=== PATIENT | male | born 1955 | race Caucasian/White ===

== ENCOUNTER → 2021-05-02 | Outpatient (CLI) | payer OTHER | LOC: CAT 10:27 | PROVIDERS: ATTEND Internal Medicine | DX: Z13.6 Encounter for screening for cardiovascular disorders (principal); I25.10 Atherosclerotic heart disease of native coronary artery without angina pectoris; E78.00 Pure hypercholesterolemia, unspecified ==

== ENCOUNTER → 2021-05-17 | Outpatient (CLI) | payer OTHER | LOC: SJCVCIMAG 08:00 | PROVIDERS: ATTEND Internal Medicine | DX: I08.0 Rheumatic disorders of both mitral and aortic valves (principal); I11.9 Hypertensive heart disease without heart failure ==

== ENCOUNTER 2021-11-11 13:56 | Inpatient (IN) | payer OTHER ==
[~2021-11-11] VITALS: Ht 170.2 cm; Wt 90.8 kg
[2021-11-11 14:00] VITALS: BP 136/73
[2021-11-11 14:24] LABS: ABSOLUTE NEUTROPHILS 8.3 thou/uL (1.4-8.2); BASOPHILS 0.1 % (0.0-2.0); HEMATOCRIT 39.5 % (42.0-52.0); HEMOGLOBIN 13.7 gm/dL (14.0-18.0); LYMPHOCYTES 7.2 % (24.0-44.0); MCH 31.1 pg (26.0-34.0); MCHC 34.8 g/dL (28.0-37.0); MCV 89.3 fL (80.0-100.0); MONOCYTES 2.5 % (1.0-8.0); PLATELET COUNT 212 thou/uL (150-400); POLYS 90.2 % (36.0-66.0); RBC 4.43 mil/uL (4.50-6.00); WBC 9.2 thou/uL (4.0-11.0)
[2021-11-11 14:39] LABS: CALCIUM 8.9 mg/dL (8.5-10.1); POTASSIUM 4.5 mmol/L (3.5-5.1)
[2021-11-11 14:50] LABS: ALBUMIN 2.9 g/dL (3.4-5.0); TOTAL BILIRUBIN 0.6 mg/dL (0.2-1.0); TOTAL PROTEIN 7.1 g/dL (6.4-8.2)
--- NOTE | 2021-11-11 17:12 | NUR ---
-DOMINGA [id number]
[2021-11-11 17:39] VITALS: BP 133/80
[2021-11-11] MEDS ORDERED: TOPROL XL50 MG PO (17:48)
[2021-11-11] MEDS ORDERED: RAMIPRIL10 MG PO (17:49)
[2021-11-11] MEDS ORDERED: TOPROL XL25 MG PO (17:49)
[2021-11-11] MEDS ORDERED: LORATIDINE 10 M10 M1 PO (17:49)
[2021-11-11 17:55] VITALS: BP 127/82
[2021-11-11 18:07] VITALS: BP 149/91
[2021-11-11 19:39] VITALS: BP 140/79
[2021-11-11 23:54] VITALS: BP 141/86
[2021-11-12] VITALS (21 sets, daily range): BP systolic 108–142; BP diastolic 63–84
--- NOTE | 2021-11-12 00:40 | NUR ---
pt o2 sats on 11 liters while sleeping 87% rt in to give treatment and optiflow applied at 45l/82% fio2
--- NOTE | 2021-11-12 03:45 | NUR ---
PROGRESS PT A/O X4. LUNGS COARSE AND DIMINISHED. O2 SATS IN LOW 90'S AT START OF SHIFT BUT RT IN TO APPLY OPTIFLOW AND PT SATS UP TO MID 90'S. PT ANXIOUS AND A ONE TIME DOSE OF ATARAX GIVEN WITH EFFECT PT RESTING AFTER. VOIDING QS PER URINAL. TELEMETRY INTACT READING SR WITH RATES IN THE 70'S TO 80'S. CONTINUE TO MONITOR.
[2021-11-12 05:12] LABS: CALCIUM 8.3 mg/dL (8.5-10.1); CREATININE 0.9 mg/dL (0.7-1.3); MAGNESIUM 2.2 mg/dL (1.8-2.4); POTASSIUM 4.5 mmol/L (3.5-5.1)
[2021-11-12 05:14] LABS: ABSOLUTE NEUTROPHILS 4.1 thou/uL (1.4-8.2); HEMATOCRIT 35.2 % (42.0-52.0); HEMOGLOBIN 12.1 gm/dL (14.0-18.0); MCH 30.6 pg (26.0-34.0); MCHC 34.3 g/dL (28.0-37.0); MONOCYTES 5.2 % (1.0-8.0); PLATELET COUNT 227 thou/uL (150-400); POLYS 80.8 % (36.0-66.0); RBC 3.96 mil/uL (4.50-6.00); WBC 5.1 thou/uL (4.0-11.0)
--- NOTE | 2021-11-12 07:18 | EKG ---
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: BRENDAN : 1955 Requested By: Hever Arnold Order Number: [id number] MD: Ferny Nino Measurements Intervals [place] Rate: 74 P: 43 OK: 146 QRS: 0 QRSD: 108 T: 38 QT: 391 QTc: 434 Interpretive Statements Sinus rhythm Probable left atrial enlargement Inferior infarct, old Baseline wander in lead(s) V1,V2,V3,V4,V5,V6 No previous ECG available for comparison Electronically Signed On 11-12-2021 7:18:34 REPOSSESSION AGENT by Ferny Nino [email or web address] <ELECTRONICALLY SIGNED> By: Ferny Nino MD, [facility] 11/12/21717 25 25 Ferny Nino MD, [facility] /EPI
--- NOTE | 2021-11-12 10:37 | NUR ---
ASSUMED PATIENT CARE AT 0700. A/O X4. NOT TOLERATED ON OPTIFLOW 02 SAT 82% 15L NRB ADD ON TO KEEP 02 SAT. TRANSFER TO ICU ORDERED. UPDATED WITH PATIENT'S . PATIENT TRANFERED TO [facility] AT 1025.
--- NOTE | 2021-11-12 14:41 | NUR ---
PT ADMITTED RELATED TO HYPOXIA, COVID, OULMONARY EMBOLIS. CM REVIED CHART AND SPOKE WITH CARE TEAM. PT IS COVID POSITIVE DIAGNOSED 10/29. PT WAS TRANSFERED TO ICU FROM 3W THIS AM. CM'S CARE DISCUSSED DURING ICU ROUNDS THIS DAY. CM CALLED AND SPOKE WITH PT'S SPOUSE KYLE. SHE INDICATED THAT SHE AND SPOUSE RESIDE IN A HOUSE WITH 2 STEPS TO ENTER AND NONE INSIDE. 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 PT'S PCP IS DR. KOKO SIMON. PT IS OPTIFLOW AT 55 WITH NRB OFF. PT IS SELF PRONING AND HAD A THOMASON PLACED. CM FOLLOWING.
--- NOTE | 2021-11-12 17:28 | NUR ---
PT TRANSERED TO ICU 11/12 AT 1100. PT SENT FOR RESP FX. PT ON OPTI FLOW AT 55L AND 100%. PT ALSO REQUIRING USE OF NRB. RN INSTERTED A KATELIN FOR ACCURATE I/O. PT RESTING FOR MOST OF THE SHIFT.
--- NOTE | 2021-11-12 19:27 | NUR ---
A #5F TRIPLE LUMEN PICC WAS PLACED PER HOSPITAL POLICY. THE LINE WAS TRIMMED TO 42CM AND ADVANCED TO 0CM EXTERNAL. THE LINE WAS CONFIRMED AND RELEASED FOR USE
[2021-11-13] VITALS (47 sets, daily range): BP systolic 96–134; BP diastolic 52–76
[2021-11-13 00:06] LABS: GLYCOHEMOGLOBIN (HGB A1C) 6.2 % (4.8-5.6)
[2021-11-13 05:23] LABS: HEMATOCRIT 30.8 % (42.0-52.0); HEMOGLOBIN 10.5 gm/dL (14.0-18.0); MCH 30.8 pg (26.0-34.0); MCHC 34.3 g/dL (28.0-37.0); RBC 3.42 mil/uL (4.50-6.00)
[2021-11-13 05:30] LABS: CALCIUM 7.9 mg/dL (8.5-10.1); CREATININE 0.9 mg/dL (0.7-1.3); POTASSIUM 4.8 mmol/L (3.5-5.1)
--- NOTE | 2021-11-13 05:33 | NUR ---
PTT SENT AT 0315. RESULT REPORTED BY LAB CRITICAL AT 0525. SEE HEPARIN FLOWCHART FOR DETAILS.
--- NOTE | 2021-11-13 13:19 | HC ---
[facility] [place] [address] CONSULTATION Name: LANE PULIDO Room #: 238-P ADM IN M.R.#: [id number] Admission: 11/11/21 Attend Phys: Marco A Montaño MD Discharge: Date of : 59 Report #: [id number] THIS REPORT FOR: cc: Mcaiej Castillo MD, David P. MD Barry, Joseph W. MD ~ DATE OF SERVICE: 11/12/2021 INFECTIOUS DISEASE CONSULTATION DATE OF CONSULTATION: 11/12/2021 ATTENDING PHYSICIAN: Marco A Montaño MD REASON FOR EVALUATION: COVID-19 infection, complicated by pneumonitis, respiratory failure with early ARDS. HISTORY OF PRESENT ILLNESS: Chart reviewed. The patient examined. This is a 66-year-old gentleman with history of hypertension, who has been ill for an excess of 2 weeks, had been ill with generalized myalgias, describes as flu-like symptoms and had fevers. He did, after a few days, took a home COVID test, I believe on 10/29/2021. This was positive. He continued to utilize crkk-blo-yojvrzc treatments; however, had increasing dyspnea over the course of last 3 days prior to admission. He was evaluated. The patient was instructed to come to the Emergency Room. He was found to be hypoxic with a pO2 in the 70s. Initial evaluation did confirm positive coronavirus testing. ProBNP of 140. Procalcitonin 0.09. CTA of the chest showed a right-sided pulmonary embolus. He was found to have a lower extremity Doppler evidence on the right with some nonocclusive DVT in the popliteal and posterior peroneal. Blood cultures collected at the time of admission are sterile thus far. He was initiated on empiric therapy with ceftriaxone, azithromycin, as well as corticosteroids. ALLERGIES: None known. CURRENT MEDICATIONS: As noted above. Ipratropium albuterol inhaler, dexamethasone, pantoprazole, guaifenesin, enoxaparin, ceftriaxone, acetaminophen, azithromycin. PAST MEDICAL HISTORY: Hypertension, hyperlipidemia. SOCIAL HISTORY: Nonsmoker. No current ethanol or illicit drug use. FAMILY HISTORY: Noncontributory. REVIEW OF SYSTEMS: Otherwise, unremarkable. He does admit to [facility], [place] [address] CONSULTATION Name: LANE PULIDO Room #: 238-P [facility].#: [id number] Admission: 11/11/21 Attend Phys: Marco A Montaño MD Discharge: Date of : 59 Report #: [id number] p.o. intake, had some GI distress. PHYSICAL EXAMINATION: GENERAL: He is alert, in xghlpuya-gg-tskrkp respiratory distress. VITAL SIGNS: Temperature 97.5, pulse 75, respirations 26, blood pressure is 141/80. SKIN: Warm, dry, no rashes. HEENT: Normocephalic. Extraocular muscles intact. He has a nasal Optiflow in place with a face mask. LUNGS: Bilateral scattered coarse breath sounds. HEART: Regular. I do not appreciate a murmur. ABDOMEN: Mildly distended, somewhat firm, nontender. EXTREMITIES: No cyanosis. GENITOURINARY AND RECTAL: Deferred. LABORATORY DATA: Ferritin elevated at 1467. CRP of 137.8, glucose of 171. Electrolytes: Sodium 137, potassium 4.5, chloride 104, bicarbonate is 21, anion gap of 12, BUN and creatinine 31 and 0.9, glucose of 156. CBC: White count 5.1, H and H 12.1 and 35.2, platelets of 227. CT as noted above, with a right-sided pulmonary embolus. ASSESSMENT: 1. COVID-19 infection, complicated by pneumonitis and respiratory failure with acute respiratory distress syndrome and right-sided pulmonary embolus. 2. Hyperglycemia 3. Hypertension. 4. Hyperlipidemia. PLAN: We will continue empiric antibacterials. He is likely outside the window for remdesivir. Continue corticosteroids. Add vitamins to his regimen. He remains quite tenuous. At this point, would be at high risk for clinical deterioration and perhaps even intubation and mechanical ventilatory support. We will try to obtain a sputum sample and check some urinary antigens. <ELECTRONICALLY SIGNED> By: Dc Garland MD 11/13/21 1319 0947 52 Dc Garland MD /nt
--- NOTE | 2021-11-13 20:29 | NUR ---
PT IS NOT PROGRSESING TOWARDS DISCHARGE AT THIS TIME, TWO INCIDENCES OF PT NOT TOLERATING OPTIFLOW, PT WOULD COUGH AND FROM THE COUGHING SPELL WOULD BE INIATED AN EXTENDED PERIOD OF ANXIETY/STRESS, PT WOULD STATE THINGS LIKE I DON'T WANT TO , AND UNABLE TO CATCH BREATH EVEN WITH RN BEDSIDE COACHING, PT WOULD BREATHE AT A RATE OF UPPER 30s AND WAS SEEN TO DESAT TO 80s LOW 79% RTs NOTIFIED ON BOTH OCCASIONS WELL THE MD, PER MD'S ORDERS, PT TO BE PLACED ON BIPAP DURING NIGHTS AND PRN DURING DAYS POSSIBLE. PRECEDEX IS ON BOARD FOR THE PATIENT, WHEN PT IS SLEEPING PT IS DOING WELL AND APPEARS COMFORTABLE BUT WHEN PATIENT WAKES UP AND IS DISTRESSED PT DESATS RATHER QUICKLY AND WARRANTS A BIPAP USE BEFORE TIRING OUT. NO COMPLAINTS FROM THE PT, PT'S NOTIFIED OF PRESENTING CONDITIONS AND PERIODS OF DESATURATIONS, VERBALIZES UNDERSTANDING. RN EDUCATED BOTH AND PT ABOUT CURRENT PRESENTING CLINICAL PICTURE. DIET IS BIT OF AN ISSUE PT IS ONLY ABLE TO TOLERATE DRINKS OF ENSURE FOR MEALS AND WAS ONLY ABLE TO RECEIVE ONE BOTTLE DURING THIS SHIFT DUE TO PT'S RESPRIATORY DISTRESS TOWARDS THE LATER PART OF THE SHIFT, RN COMMUNICATED THIS AND IS MONITORING CLOSELY. SIGNING OFF
[2021-11-14] VITALS (37 sets, daily range): BP systolic 112–161; BP diastolic 58–101
[2021-11-14 05:14] LABS: HEMATOCRIT 32.1 % (42.0-52.0); MCH 30.6 pg (26.0-34.0); MCHC 34.2 g/dL (28.0-37.0); MCV 89.5 fL (80.0-100.0); RBC 3.59 mil/uL (4.50-6.00); WBC 6.8 thou/uL (4.0-11.0)
[2021-11-14 05:23] LABS: CALCIUM 7.8 mg/dL (8.5-10.1); CREATININE 0.8 mg/dL (0.7-1.3); POTASSIUM 4.9 mmol/L (3.5-5.1)
--- NOTE | 2021-11-14 06:45 | NUR ---
ASSUMED CARE OF PT AT 1900. PT ALERT AND ORIENTED X4. PT ABLE TO PRONE AT 2300 AND TOLERATED WELL. PT'S UPDATED TWICE DURING SHIFT. PT HAS MAINATAINED O2 SAT IN MID TO HIGH 90s. PT DENIES ANY DISTRESS OR SOB WITH DRINKING OR TALKING. PT ON OPTIFLOW SINCE APPROXIMATELY 1900. PT MAKING PROGRESS TOWARDS GOALS.
--- NOTE | 2021-11-14 13:27 | NUR ---
CM REVIEWED CHART AND SPOKE WITH NURSE. PT'S CARE WAS DISCUSSED DURING ICU ROUNDS THIS DAY. CARE TEAM INDICATED THAT PT REMAINS ON OPTIFLOW 55L FIO2 AT 99-100%. PT IS ON CEFTIAXONE AND AZYTHROMYCIN. PT IS PROMING AND HADN'T NEEDED BIPAP LAST NIGHT. CM FOLLOWING. IT IS ANTICPATED THAT PT WILL REMAIN HERE IN ICU OVER FOR HE NEXT FEW DAYS.
[2021-11-15] VITALS (33 sets, daily range): BP systolic 100–162; BP diastolic 62–118
[2021-11-15 05:29] LABS: CALCIUM 8.1 mg/dL (8.5-10.1); CREATININE 0.8 mg/dL (0.7-1.3); POTASSIUM 4.8 mmol/L (3.5-5.1)
--- NOTE | 2021-11-15 06:38 | NUR ---
ASSUMED CARE OF PT AT 1900. PT ALERT AND ORIENTED. PT ABLE TO PRONE FROM 2200 TO 0600. PT DESATS TO 80s WITH MINIMAL EXERTION. PT HAS TOLERATED OPTIFLOW THROUGHOUT THE NIGHT. UPDATED X2 BY THIS RN ON PT STATUS.
--- NOTE | 2021-11-15 15:53 | NUR ---
PT IS STABLE ON OPTIFLOW 100%/50L BUT DESATTS TO 86% WITH MOVEMENT/ORAL INTAKE. HIS VSS, AMANDA AND HE IS RESTING COMFORTABLY ON A PRECEDEX DRIP. THIS PT HAS CALLED TWICE TODAY STATING," TWO OTHER NURSES TOLD ME THAT HE HAS BEEN SATTING 100%, WHY IS HIS OXYGEN LOW NOW?" HOWEVER, LOOKING AT PREVIOUS DOCUMENTATION IT IS NOTED THAT THIS PT. HAS BEEN DESATTING AND HYPOXIC THE LAST TWO DAYS. THIS RN EDUCATES THE THAT A PT STATUS CHANGES EACH HOUR IN THE ICU. ALL HER QUESTIONS ARE ANSWERED.
--- NOTE | 2021-11-15 17:00 | NUR ---
PT HAS BEEN SATTING 86-90% OVER THE LAST HOUR. RT IS NOTIFIED, THE BIPAP IS PLACED ON THE PT TO TREAT SHALLOW BREATHING TO INCREASE VENTILATION. THE PT HAS BEEN HYPOXIC EVIDENCED BY DESATTING ALL DAY; HOWEVER, THE BIPAP INCREASED THE PT SATURATION TO 97%. HE IS RESTING COMFORTABLY, TACHYPNEA IS NOTED.
--- NOTE | 2021-11-15 22:00 | NUR ---
SPOKE WITH PTS AT LENGTH. SHE HAD MANY QUESTIONS. SHE STATED THAT THEY DO NOT BELIEVE THE COVID VACCINES.
[2021-11-16] VITALS (37 sets, daily range): BP systolic 101–150; BP diastolic 50–80
--- NOTE | 2021-11-16 06:00 | NUR ---
PT HAS SLEPT MOST OF NIGHT. VSS DESATS VERY QUICKLY WITH ANY MOVEMENT. REMAINS ON BIPAP 100 %. 1000 CC UO THIS SHIFT. REMAINS IN ENHANSED PRECAUTIONS FOR COVID 19. NOT PROGRESSING TOWARD GOALS
[2021-11-16 06:42] LABS: HEMATOCRIT 34.3 % (42.0-52.0); HEMOGLOBIN 11.6 gm/dL (14.0-18.0); MCHC 33.7 g/dL (28.0-37.0); MCV 89.1 fL (80.0-100.0); RBC 3.85 mil/uL (4.50-6.00); RDW 12.9 % (10.5-14.5); WBC 9.7 thou/uL (4.0-11.0)
[2021-11-16 09:54] LABS: CALCIUM 8.3 mg/dL (8.5-10.1); CREATININE 0.9 mg/dL (0.7-1.3)
--- NOTE | 2021-11-16 17:41 | NUR ---
PATIENT WAS TAKEN OFF BIPAP THIS AM 02 LEVELS IN THE HI 90'S. RT PLACED PATIENT ACCUFLO 02 AND 02 DROPPED IN TO MID 80'S. RT PLACED BIPAP BACK ON PATIENT AND HE HAS BEEN ON BIPAP THE REST OF THE DAY. TALKED TO PATIENTS A FEW TIMES. SHE WANT TO KNOW IF WE WERE GOING TO TEST PATIENT AGAIN FOR COVID SO SHE COULD COME AND SEE HIM. TALKED TO DIFFERNT STAFF AND DOCTORS AND WE DO NOT USELY TEST AGAIN SHE WAS TOLD. PATIENT IS RESTING IN BED WITH CALL CROOKS IN REACH.
[2021-11-17] VITALS (25 sets, daily range): BP systolic 95–145; BP diastolic 43–81
[2021-11-17 04:40] LABS: CALCIUM 8.4 mg/dL (8.5-10.1); CREATININE 0.8 mg/dL (0.7-1.3); POTASSIUM 4.9 mmol/L (3.5-5.1)
--- NOTE | 2021-11-17 09:39 | NUR ---
PT ON 100% OPTIFLOW, ATTEMPTED TO SUPINE FROM A PRONE POSITION, PT DESATURATD TO 68%. pT PLACE ON 100% BIPAP AND CONTINUED PRONE POSITION. PT SAURATION INCREASED TO MID 90%. UNABLE TO GIVE PATIENT HIS PILLS OR HIS MEAL AT THIS HUNG. DISCUSSED THIS WITH MD MARIN AND NO NEW INTERVETION ORDERED AT THIS TIME.
--- NOTE | 2021-11-17 21:00 | NUR ---
SPOKE WITH PATIENT'S SPOUSE BY PHONE AND UPDATED ON PATIENT STATUS. ALL QUESTIONS WERE ANSWERED DURING THE CALL.
[2021-11-18] VITALS (23 sets, daily range): BP systolic 96–157; BP diastolic 47–82
--- NOTE | 2021-11-18 06:29 | NUR ---
PATIENT CONTINUES DESAT WITH ACTIVITY AND REPOSITIONING. PRONES NEEDED. PATIENT ON OPTIFLO - EARLY IN SHIFT TITRATED DOWN 55L 80% FIO2. PATIENT ASSISTED TO BEDPAN AND HAD MODERATE SIZE BM. PATIENT ON CONTINUOUS PRECEDEX GTT. PATIENT ATE 80% OF DINNER. PATIENT C/O LEFT SHOULDER PAIN AROUND 5AM AND TABLE CUT OFF SAW OPERATOR WAS CONTATED AND ORDERS FOR A TOPICAL CREAM WERE GIVEN TO ALLEVIAE ACHE. REPOSITIONED FOR COMFORT. WILL CONTINUE TO MONITOR AND FOLLOW POC.
--- NOTE | 2021-11-18 19:06 | NUR ---
PT AT 8AM DESAT ON OPTIFLOW PRONE, PLACED PT ON BIPAP FOR 2 HOURS. PT WAS ABLE TO TOLERATED OPTIFLOW AND SUPINATE FOR 8 HRS. PT IS AMICABLE TO BEING ON BIPAP AT NITE. PT REQUEST LEFT SHOULDER TO BE DOWN IF HE HAS TO BE PRONE BECAUSE OF AN OLD INJURY. PT TOLERATED EATING DINNER ON OPTIFLOW.
[2021-11-19] VITALS (23 sets, daily range): BP systolic 107–145; BP diastolic 67–84
--- NOTE | 2021-11-19 07:36 | NUR ---
PATIENT ALERT AND ORIENTED AND VERY PLEASANT. PATIENT CONTINUES TO DESAT TO LOW-80s ON HFNC AT 100%. PATIENT USED BIPAP FOR SHORT PERIOD OF TIME D/T ANXIETY ABOUT COUGH WITH MASK ON. EARLY IN THE MORNING PATIENT DESAT TO LOW-80S AGAIN AND RT CALLED. PATIENT GIVEN RESPIRATORY TREATMENT AND 02 SAT IMPROVED T0 91%. WILL CONTINUE TO MONITOR AND FOLLOW POC.
[2021-11-19 09:00] LABS: BE(vivo) -5.8 mmol/L (-2 to +3); HCO3 15.4 mmol/L (22.0-26.0); PO2 59.4 mmHg (80.0-100.0); sO2 93.1 % (92.0-98.0)
[2021-11-19 09:01] LABS: PCO2 21.1 mmHg (35.0-45.0)
--- NOTE | 2021-11-19 09:59 | NUR ---
SPOKE TO PTS A 0959 AND LET HER KNOW THAT THE NEXT STEP PER THE DOCTORS WOULD BE INTUBATION. THE JUST KEPT QUESTIONING ME AND DISAGREEING WITH WHAT THE DOCTORS THINK IS NECESSARY. SHE WANTS TO SPEAK TO THE DOCTOR PRIOR TO TO TAKING ANY FURTHUR STEPS. PT IS REALLY ANXIOUS AND KEEPS DISCONNECTING HIS BIPAP AND HIS SATS DROP TO 79 WHEN OFF BIPAP EVEN FOR A FEW SECONDS
--- NOTE | 2021-11-19 19:45 | NUR ---
NOTED CREPITUS ON RT SIDE OF NECK AND CHECK ON ASSESSMENT. STAT CXR ORDERED AND DR. MARIN CALLED.
--- NOTE | 2021-11-19 21:10 | NUR ---
SPOKE WITH DR. MARIN TO UPDATE ON STATUS OF CXR. NO ORDERS GIVEN. WILL CONTINUE TO MONITOR FOR CHANGES.
--- NOTE | 2021-11-19 21:50 | NUR ---
SPOKE WITH PATIENT SPOUSE AND PROVIDED AN UPDATE ON STATUS. SPOUSE UPSET PATIENT DID NOT PRONE PREVIOUS NIGHT. EXPLAINED THAT THE RT AND THIS NURSE DID SPEND TIME EDUCATING AND EXPLAINING THE BENEFIS OF PRONINING AND WEARING BIPAP AT NOC AND/OR PRN - PATIENT WAS ALERT/ORIENTED AT THE TIME AND REFUSED TO PRONE AND TOOK BIPAP OFF AFTER 2 HOURS D/T C/O ANXIETY AND COUGHING. SPOUSE ALSO WANTS PATIENT TO BEGIN REMDESIVIR BY TOMORROW. RN EXPLAINED THAT ORDERS FOR MED NOT FOUND IN [facility] BUT THAT SHE WOULD FOLLOW UP WITH DAY SHIFT NURSE SO MED IS ADDRESSED DURING ROUNDING TOMORROW. EXPLAINED THAT THE RT AND THIS NURSE EXPLAINED THE BENEFITS OF PRO MAINTAINING SATS ABOVE 92%. EXPLAINED TO SPOUSE THAT THE PATIENT WAS ALERT/ORIENTED PRIOR TO INTUBATION AND REFUSED TO PRONE. SPOUSE INSISTED SHOULD NOT B
[2021-11-20] VITALS (81 sets, daily range): BP systolic 86–130; BP diastolic 46–78
[2021-11-20 04:37] LABS: HEMATOCRIT 36.4 % (42.0-52.0); HEMOGLOBIN 12.3 gm/dL (14.0-18.0); MCH 30.2 pg (26.0-34.0); MCHC 33.8 g/dL (28.0-37.0); MCV 89.2 fL (80.0-100.0); RBC 4.08 mil/uL (4.50-6.00); RDW 12.8 % (10.5-14.5); WBC 15.5 thou/uL (4.0-11.0)
[2021-11-20 04:42] LABS: CALCIUM 8.5 mg/dL (8.5-10.1); CREATININE 0.9 mg/dL (0.7-1.3)
--- NOTE | 2021-11-20 07:35 | NUR ---
PATIENT OXYGEN TITRATED DOWN OVERNOC FROM 100% TO 85%. PATIENT CONTINUES TO REQUIRE MINIMAL PRESSOR SUPPORT AND MAXIMUM SEDATION. PATIENT NOT FOLLOWING COMMANDS AT THIS TIME.
--- NOTE | 2021-11-20 09:45 | NUR ---
Recommend start enteral nutrition if ok with hospitalist or Pulmonary. vital HP to start 30ml/hr. Note K+ of 6.
--- NOTE | 2021-11-20 12:38 | NUR ---
CM REVIEWED CHART AND SPOKE WITH NURSE. PT'S CARE DISCUSSED IN ICU ROUNDS THIS DAY. CARE TEAM INDICATED THAT PT WAS INTUBATED YESTERDAY. PT IS ON LEVO, PRECEDEX, AND PROPOFOL. PT IS ON IV FLUIDS. CARE TEAM INDICATED THAT THEY ARE GOING TO ADDRESS NUTRITION THIS DAY. NURSE INDICATED THAT PT'S SPOUSE WAS UPSET THAT PT HADN'T BEEN GETTING REMDESIVIR. CARE TEAM INDICATED THAT IT APPEARED THAT PT HAD REFUSED IT UPON ADMISSION. CARE TEAM ALSO INDICATED THAT PT REFUSED PRONING YESERDAY DUE TO SHOULDER PAIN. PT WITH FEVER OF 101.7. CM FOLLOWING.
--- NOTE | 2021-11-20 12:59 | NUR ---
TALKED TO THE DOCTOR THIS AM ABOUT STARTING THE PATIENT ON REMDESIVIR PER WIFES REQUEST. TOLD DOCTOR ABOUT K OF 6, NO NEW ORDERS AT THAT TIME. ASKED ABOUT STARTING TUB FEEDINGS AND ORDERS WERE PLACED AND STARTED @ 15 ML/HR WITH WATER FLUSHES 240 Q6HRS. CALLED AND THIS RN HAS TRYED TO CALL HER BACK X2 LEFT 1 MESSAGE. PATIENT IS RESTING IN BED WITH CALL CROOKS IN REACH.
[2021-11-20 13:51] LABS: BE(vivo) -7.3 mmol/L (-2 to +3); HCO3 19.7 mmol/L (22.0-26.0); PCO2 45.3 mmHg (35.0-45.0); PO2 50.5 mmHg (80.0-100.0); pH 7.256 (7.360-7.450)
--- NOTE | 2021-11-20 21:24 | NUR ---
This RN spoke to Dain, at 1455. Discussed plan of care and patient status. Questions answered.
[2021-11-21] VITALS (17 sets, daily range): BP systolic 96–157; BP diastolic 57–84
[2021-11-21 07:29] LABS: ALBUMIN 2.1 g/dL (3.4-5.0); CALCIUM 8.7 mg/dL (8.5-10.1); CREATININE 0.9 mg/dL (0.7-1.3); DIRECT BILIRUBIN 0.2 mg/dL (<0.1-0.2); PHOSPHORUS 3.4 mg/dL (2.6-4.7); POTASSIUM 5.2 mmol/L (3.5-5.1); TOTAL BILIRUBIN 0.5 mg/dL (0.2-1.0); TOTAL PROTEIN 6.6 g/dL (6.4-8.2)
--- NOTE | 2021-11-21 12:30 | NUR ---
@ 1204 PAGED DOCTOR REYNOLDS ABOUT PATINETS HEART RATE IN 170-190'S. @ 1218 MESSAGED RODOLFO ABOUT HEART RATE STILL IN THE 170-190. MESSAGED TANIA ARAMBULA @ 1224. DOCTOR REYNOLDS CALLED BACK AT 1235. RODOLFO CHECKING RESULTS AND WILL GIVE NEW ORDERS.
--- NOTE | 2021-11-21 15:42 | NUR ---
66 year old male remains on vent for COVID-19 Pneumonia at 80% FI02 and 16 of Peep. No anticipated CM needs at this time. CM to follow when moving closer to discharge needs being identified.
--- NOTE | 2021-11-21 18:31 | NUR ---
PATIENT CAME IN TO SEE HIM. PATIENTS HEART RATE HAS BEEN IN THE 90'S AFTER MEDICATIONS. PATIENTS IS RESTING IN BED WITH CALL CROOKS IN REACH.
[2021-11-22] VITALS (92 sets, daily range): BP systolic 97–151; BP diastolic 56–87
--- NOTE | 2021-11-22 01:58 | NUR ---
This RN spoke to Dain, at 2200. Discussed patient status and plan of care.
--- NOTE | 2021-11-22 01:59 | NUR ---
This RN spoke to David Alford NP around 2229 regarding patients a fib rvr. Patients HR 100-170s. Orders received for cardizem bolus and gtt. Orders intiated. Patient stablized. Will continue to monitor.
--- NOTE | 2021-11-22 02:01 | NUR ---
Patient went into rapid afib again. Consulted David again. Told to wait 30 minutes and give another bolus if needed. Patient went out of rhythm and converted back to sinus after waiting for 30 minutes. Bolus not needed. Will continue to monitor.
[2021-11-22 04:34] LABS: ABSOLUTE NEUTROPHILS 12.2 thou/uL (1.4-8.2); BASOPHILS 0.3 % (0.0-2.0); EOSINOPHILS 0.4 % (0.0-3.0); HEMATOCRIT 34.2 % (42.0-52.0); HEMOGLOBIN 11.3 gm/dL (14.0-18.0); LYMPHOCYTES 4.1 % (24.0-44.0); MCH 29.9 pg (26.0-34.0); MCV 90.6 fL (80.0-100.0); MONOCYTES 2.8 % (1.0-8.0); PLATELET COUNT 167 thou/uL (150-400); POLYS 92.4 % (36.0-66.0); RBC 3.78 mil/uL (4.50-6.00); RDW 13.3 % (10.5-14.5); WBC 13.2 thou/uL (4.0-11.0)
[2021-11-22 04:43] LABS: BE(vivo) -4.2 mmol/L (-2 to +3); HCO3 21.5 mmol/L (22.0-26.0); PCO2 41.9 mmHg (35.0-45.0); PO2 68.3 mmHg (80.0-100.0); sO2 92.5 % (92.0-98.0)
[2021-11-22 04:44] LABS: pH 7.329 (7.360-7.450)
[2021-11-22 05:15] LABS: ALBUMIN 1.8 g/dL (3.4-5.0); CALCIUM 8.3 mg/dL (8.5-10.1); CREATININE 0.7 mg/dL (0.7-1.3); DIRECT BILIRUBIN 0.1 mg/dL (<0.1-0.2); MAGNESIUM 2.1 mg/dL (1.8-2.4); PHOSPHORUS 2.8 mg/dL (2.5-4.9); POTASSIUM 4.6 mmol/L (3.5-5.1); TOTAL BILIRUBIN 0.3 mg/dL (0.2-1.0); TOTAL PROTEIN 5.8 g/dL (6.4-8.2)
--- NOTE | 2021-11-22 05:56 | NUR ---
This RN called Dr. Conteh regarding persistent a fib rvr. Orders to add amiodarone gtt. Orders initiated, will monitor.
--- NOTE | 2021-11-22 05:57 | NUR ---
This RN called Dr. Conteh at 0545 regarding patient going into a fib rvr and sustaining for about 30 minutes and then returning to sinus rhythm. Discussed worsening subcutaneous emphysema and read cxr results and morning ABG. No new orders received. Physician will be to bedside shortly to assess. Patient is not progressing towards goals.
--- NOTE | 2021-11-22 09:45 | NUR ---
ASSUMED CARE OF PT AT 0700 PTS AT BEDSIDE AT 0830, ANSWERED ALL QUESTIONS PER POC DURING MY ASSESSMENT IT WAS NOTED THAT THE SUB Q AIR IS ACROSS HIS CHEST AND DOWN BOTH ARMS AND INTO HIS HANDS, PROVIDER AWARE, CHEST X RAY ORDERED.
--- NOTE | 2021-11-22 11:19 | EKG ---
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 : 1955 Requested By: Jim Paiz Order Number: [id number] MD: Jet Busch Measurements Intervals [place] Rate: 178 P: [place]: QRS: -16 QRSD: 91 T: 87 QT: 295 QTc: 508 Interpretive Statements Atrial flutter with a rapid ventricular response Borderline left axis deviation ST depression, probably rate related Compared to ECG 11/11/2021 14:26:30 ST (T wave) deviation now present Sinus rhythm no longer present Electronically Signed On 11-22-2021 11:18:36 POWERPLANT OPERATOR by Jet Busch [email or web address] <ELECTRONICALLY SIGNED> By: Jet Busch MD, FAC 11/22/21 1118 1214 1214 Jet Busch MD, [facility] /EPI
--- NOTE | 2021-11-22 11:34 | EKG ---
[place] [address] [facility] [employer] [place] [address] ELECTROCARDIOGRAM REPORT Name: KAVON PULIDONIS Mariposa Room #: 238-P ADM IN M.R.#: [id number] Admission: 11/11/21 Attend Phys: Marco A Montaño MD Discharge: Date of : 59 Report #: [id number] [facility] Test Date: 2021-11-22 Test Time: 07:53:25 Pat Name: LANE PULIDO Department: Room: 238 P Gender: M Fur Floor Worker: SHARIF : 1955 Requested By: Jim Paiz Order Number: [id number] MD: Jet Busch Measurements Intervals [place] Rate: 93 P: 64 [place]: 147 QRS: 1 QRSD: 85 T: 71 QT: 301 QTc: 375 Interpretive Statements Sinus rhythm Ventricular premature complex Borderline repol abnormality, lateral leads Compared to ECG 11/21/2021 12:14:06 Ventricular premature complex(es) now present Atrial fibrillation no longer present Electronically Signed On 11-22-2021 11:34:46 REFERRAL SPECIALIST by Jet Busch [email or web address] <ELECTRONICALLY SIGNED> By: Jet Busch MD, [facility] 11/22/21 1134 0753 0753 Jet Busch MD, [facility] /EPI
--- NOTE | 2021-11-22 21:00 | NUR ---
PT'S CALLED UNIT. UPDATE PROVIDED. SHE PLANS TO COME VISIT TOMORROW.
[2021-11-23] VITALS (43 sets, daily range): BP systolic 87–148; BP diastolic 55–87
--- NOTE | 2021-11-23 05:17 | NUR ---
NO SIGNIFICANT EVENTS SO FAR THIS SHIFT. PT REMAINS SEDATED ON VENT WITH PROPOFOL AND FENTANYL. HE OPENS HIS EYES WITH ANY DECREASE IN SEDATION OR STIMULATION, BUT DOES NOT TRACK OR MAKE PURPOSEFUL MOVEMENTS. SR ON TELE WITH A FEW RUNS OF AFIB DURING THE NIGHT. AMIO AND CARDIZEM GTTS INFUSING ORDERED. NO SIGNIFICANT CHANGES IN SUBCUTANEOUS AIR TO NECK, UPPER TORSO, ARMS, AND ABDOMEN. SPO2 > 92% ON VENT WITH 80% FIO2. VSS. AFEBRILE. TF VIA OGT. UNABLE TO ADVANCE TF RATE TO GOAL RESIDUALS 200-325ML. NOT PROGRESSING WELL TOWARD POC GOALS. WILL MONITOR FURTHER.
[2021-11-23 07:32] LABS: ABSOLUTE NEUTROPHILS 11.7 thou/uL (1.4-8.2); BASOPHILS 0.3 % (0.0-2.0); EOSINOPHILS 0.2 % (0.0-3.0); HEMATOCRIT 33.5 % (42.0-52.0); HEMOGLOBIN 10.8 gm/dL (14.0-18.0); LYMPHOCYTES 3.4 % (24.0-44.0); MCH 29.7 pg (26.0-34.0); MCHC 32.2 g/dL (28.0-37.0); MCV 92.3 fL (80.0-100.0); MONOCYTES 2.8 % (1.0-8.0); PLATELET COUNT 169 thou/uL (150-400); POLYS 93.3 % (36.0-66.0); RBC 3.63 mil/uL (4.50-6.00); RDW 13.7 % (10.5-14.5); WBC 12.6 thou/uL (4.0-11.0)
[2021-11-23 07:59] LABS: ALBUMIN 1.8 g/dL (3.4-5.0); CALCIUM 7.9 mg/dL (8.5-10.1); CREATININE 0.9 mg/dL (0.7-1.3); POTASSIUM 4.8 mmol/L (3.5-5.1); TOTAL BILIRUBIN 0.3 mg/dL (0.2-1.0); TOTAL PROTEIN 5.1 g/dL (6.4-8.2)
[2021-11-23 08:12] LABS: DIRECT BILIRUBIN 0.1 mg/dL (<0.1-0.2)
--- NOTE | 2021-11-23 18:42 | NUR ---
PT SLOWLY PROGRESSING ON PLAN OF CARE. TRANSITIONED FROM ASSIST CONTROL TO PRESSURE CONTROL ON VENTILATOR. STILL REQIRING 80% FIO2. WEANING ABLE.
[2021-11-24] VITALS (26 sets, daily range): BP systolic 87–161; BP diastolic 52–85
[2021-11-24 04:24] LABS: BE(vivo) -5.1 mmol/L (-2 to +3); HCO3 22.5 mmol/L (22.0-26.0); PCO2 53.8 mmHg (35.0-45.0); PO2 84.9 mmHg (80.0-100.0); sO2 94.6 % (92.0-98.0)
[2021-11-24 08:29] LABS: ABSOLUTE NEUTROPHILS 8.5 thou/uL (1.4-8.2); BASOPHILS 1.2 % (0.0-2.0); EOSINOPHILS 0.2 % (0.0-3.0); HEMATOCRIT 31.1 % (42.0-52.0); HEMOGLOBIN 10.3 gm/dL (14.0-18.0); LYMPHOCYTES 3.4 % (24.0-44.0); MCH 30.7 pg (26.0-34.0); MCHC 33.3 g/dL (28.0-37.0); MCV 92.1 fL (80.0-100.0); MONOCYTES 3.4 % (1.0-8.0); PLATELET COUNT 142 thou/uL (150-400); POLYS 91.8 % (36.0-66.0); RBC 3.37 mil/uL (4.50-6.00); RDW 13.7 % (10.5-14.5); WBC 9.3 thou/uL (4.0-11.0)
[2021-11-24 08:44] LABS: ALBUMIN 1.7 g/dL (3.4-5.0); CALCIUM 8.1 mg/dL (8.5-10.1); CREATININE 1.2 mg/dL (0.7-1.3); DIRECT BILIRUBIN 0.2 mg/dL (<0.1-0.2); PHOSPHORUS 4.3 mg/dL (2.6-4.7); POTASSIUM 5.2 mmol/L (3.5-5.1); TOTAL BILIRUBIN 0.3 mg/dL (0.2-1.0); TOTAL PROTEIN 5.7 g/dL (6.4-8.2)
--- NOTE | 2021-11-24 16:22 | NUR ---
RN SENT MESSAGE TO DR. REYNOLDS REGARDING NO BM AFTER MIRALAX ADMINISTRATION. RN INQUIRED IF MD WOULD LIKE TO PLACE ORDER FOR SUPPOSITORY. AWAITING ANY NEW ORDERS.
--- NOTE | 2021-11-24 18:15 | NUR ---
RN RECEIVED CALL FROM LAB OF CRITICAL HIGH VANCOMYCIN TROUGH LEVEL OF 32. RN NOTIFIED ICU PHARMACIST. WILL HOLD 1800 DOSE AND PHARMACY TO READJUST ACCORDINGLY.
--- NOTE | 2021-11-24 19:16 | NUR ---
PT PROGRESSING WITH CARE PLAN EVIDENCED BY DECREASE IN PEEP AND FIO2 THIS SHIFT. CONTINUING TO DECREASE SETTINGS PT TOLERATES. PT REMAINS ON CARDIAC GTTS FOR RATE AND RHYTHM MANAGEMENT. SPOUSE AT BEDSIDE MAJORITY OF VISITING HOURS.
[2021-11-25] VITALS (41 sets, daily range): BP systolic 80–163; BP diastolic 49–83
[2021-11-25 05:43] LABS: HEMATOCRIT 31.6 % (42.0-52.0); HEMOGLOBIN 10.7 gm/dL (14.0-18.0); MCHC 33.8 g/dL (28.0-37.0); MCV 91.7 fL (80.0-100.0); RBC 3.44 mil/uL (4.50-6.00); RDW 13.5 % (10.5-14.5); WBC 10.5 thou/uL (4.0-11.0)
[2021-11-25 05:51] LABS: CALCIUM 8.2 mg/dL (8.5-10.1); CREATININE 1.2 mg/dL (0.7-1.3); POTASSIUM 4.8 mmol/L (3.5-5.1)
--- NOTE | 2021-11-25 11:48 | NUR ---
Discuss during los with the attending physician and during unit rounds with pulmonary MD. Hx covid, out of enhanced Isolation. Vent 80% and peep12. Tube feed for nutritional support. He opens his eyes wide but does not follow commands per report. Will cont. following as needed.
[2021-11-25 18:54] LABS: CREATININE 1.1 mg/dL (0.7-1.3); POTASSIUM 5.5 mmol/L (3.5-5.1)
[2021-11-25 19:02] LABS: MAGNESIUM 2.4 mg/dL (1.8-2.4)
--- NOTE | 2021-11-25 23:13 | NUR ---
ASSUMED CARE OF PT AT 1900. SPOKE TO PT AT 2314. UPDATED ON PT STATUS AND ANSWERED ALL QUESTIONS.
[2021-11-26] VITALS (38 sets, daily range): BP systolic 81–162; BP diastolic 49–93
[2021-11-26 03:49] LABS: CALCIUM 8.4 mg/dL (8.5-10.1); CREATININE 1.1 mg/dL (0.7-1.3); POTASSIUM 5.6 mmol/L (3.5-5.1)
--- NOTE | 2021-11-26 11:37 | NUR ---
1115: DR. GATES AT BEDSIDE FOR INTERDISCIPLINARY ROUNDS. CONTINUING TO TITRATE FIO2 AND PEEP TOLERATED. SLOW PROCESS AT THIS TIME. SURGERY HAS BEEN CONSULTED AND DISCUSSED POSSIBILITY OF TRACH/PEG PLACEMENT WITH FAMILY. SPOUSE AT BEDSIDE.
[2021-11-26 12:05] LABS: HEMATOCRIT 32.5 % (42.0-52.0); HEMOGLOBIN 10.6 gm/dL (14.0-18.0); MCH 30.3 pg (26.0-34.0); MCHC 32.5 g/dL (28.0-37.0); PLATELET COUNT 169 thou/uL (150-400); RDW 14.1 % (10.5-14.5); WBC 10.9 thou/uL (4.0-11.0)
[2021-11-26 12:53] LABS: ABSOLUTE NEUTROPHILS 9.6 thou/uL (1.4-8.2); METAMYELOCYTES 1 %
--- NOTE | 2021-11-26 18:19 | NUR ---
PT VERY SLOWLY PROGRESSING ON PLAN OF CARE ON VENTILATOR WEANING EVIDENCED BY DECREASE IN FIO2 TO 70% THIS SHIFT. POSSIBLE TRACH/PEG PLACEMENT DISCUSSED BETWEEN SURGICAL TEAM AND PT'S SPOUSE. PT REMAINS ON PEEP OF 12. PT'S SPOUSE AT BEDSIDE FROM APPROXIMATELY [id number] TODAY. PT'S SPOUSE SPOKE WITH DR. GATES AND DR. REYNOLDS REGARDING CURRENT PLAN OF CARE.
[2021-11-27] VITALS (48 sets, daily range): BP systolic 89–131; BP diastolic 58–84
[2021-11-27 06:12] LABS: CALCIUM 8.2 mg/dL (8.5-10.1); CREATININE 1.5 mg/dL (0.7-1.3)
[2021-11-27 06:20] LABS: POTASSIUM 6.2 mmol/L (3.5-5.1)
--- NOTE | 2021-11-27 19:27 | NUR ---
PATIENT HAS NOT TRYED TO MOVE SOFT WRIST RESTRAINTS WERE REMOVED. PATIENTS WAS HERE ALL DAY. GRICELDA IS RESTING IN BED.
[2021-11-28] VITALS (48 sets, daily range): BP systolic 88–127; BP diastolic 52–75
[2021-11-28 05:29] LABS: CALCIUM 8.4 mg/dL (8.5-10.1)
[2021-11-28 05:34] LABS: CREATININE 2.8 mg/dL (0.7-1.3)
[2021-11-28 05:35] LABS: POTASSIUM 7.1 mmol/L (3.5-5.1)
--- NOTE | 2021-11-28 09:57 | NUR ---
Nutrition: When tube feeds resume, REC change to Nepro at 35 mL/hr with current propofol rate with beneprotein in flushes.
[2021-11-28 11:57] LABS: AMYLASE 115 U/L (25-115)
[2021-11-28 15:49] LABS: CALCIUM 8.2 mg/dL (8.5-10.1); CREATININE 3.3 mg/dL (0.7-1.3)
[2021-11-28 15:51] LABS: POTASSIUM 6.5 mmol/L (3.5-5.1)
[2021-11-28 17:13] LABS: HEMATOCRIT 25.7 % (42.0-52.0); MCH 30.1 pg (26.0-34.0); MCHC 32.2 g/dL (28.0-37.0); MCV 93.5 fL (80.0-100.0); PLATELET COUNT 99 thou/uL (150-400); RBC 2.75 mil/uL (4.50-6.00); RDW 13.4 % (10.5-14.5); WBC 11.1 thou/uL (4.0-11.0)
[2021-11-28 17:39] LABS: HEMOGLOBIN 8.3 gm/dL (14.0-18.0)
--- NOTE | 2021-11-28 19:19 | NUR ---
DOCTOR TALKED TO TODAY ABOUT GRICELDA HAVING BLOOD IN MOUTH, ORDER WERE TO BE BUT IN. DOCTOR TOLD ABOUT K+ GOING DOWN TO 6.5 AND BACK UP TO 6.8 NEW ORDERS WERE GIVEN AND DONE. ALSO TOLD DOCTOR ABOUT CREATININE UP TO 3.3 AND BUN UP TO 112, NO NEW ORDERS AT THIS TIME. MOISES WAS HERE AND IS HOME FOR THE NIGHT. DOCTOR KNOW THAT THE PATIENT HAS NOT HAD A BM IN 3 DAY. PATIENT IS RESTING IN BED.
[2021-11-28 20:02] LABS: ABSOLUTE NEUTROPHILS 9.4 thou/uL (1.4-8.2); ANISOCYTOSIS 1+; METAMYELOCYTES 1 %; POIKILOCYTOSIS 2+
--- NOTE | 2021-11-28 22:52 | NUR ---
Pt's spouse Katya Obando called from [phone]. She was updated on the pt's condition and plan of care
[2021-11-29] VITALS (69 sets, daily range): BP systolic 70–135; BP diastolic 37–70
[2021-11-29 04:50] LABS: CALCIUM 7.9 mg/dL (8.5-10.1); CREATININE 4.1 mg/dL (0.7-1.3)
[2021-11-29 05:00] LABS: POTASSIUM 6.4 mmol/L (3.5-5.1)
--- NOTE | 2021-11-29 08:12 | NUR ---
0800: RN CALLED [facility]. IR IS AWARE OF NEED FOR HD CATH PLACEMENT. THEY WILL DISCUSS WITH RADIOLOGIST TIMING OF PLACEMENT
--- NOTE | 2021-11-29 10:34 | NUR ---
1030: INTERVENTIONAL RADIOLOGY TEAM AT BEDSIDE AT THIS TIME FOR PLACEMENT OF HEMODIALYSIS CATHETER; PT'S SPOUSE UPDATED AT BEDSIDE ON PLANNED PROCEDURE AND VERBALIZES UNDERSTANDING.
--- NOTE | 2021-11-29 11:57 | NUR ---
Start nepro tube feed when ok per nephrology, goal 35ml/hr. Defer water flush/fluid needs to lockstitch shoulder joiner as well. No beneprotein powders for now
--- NOTE | 2021-11-29 12:38 | NUR ---
CM REVIEWED CHART AND SPOKE WITH PT'S NURSE. PT'S CARE WAS DISCUSSED DURING ICU ROUNDS THIS DAY. PT IS OUT OF COVID ISO. CARE TEAM REPORTED THAT PT'S SPOUSE KYLE HAD VISITED PT AT BEDSIDE. PT CONTINUES ON THE VENT INTUBATED AND SEDATED. FIO2 100% PEEP 12. PT'S TUBE FEEDING IS ON HOLD PT IS HAVING A DIALYSIS CATHETER PLACED BY IR THIS DAY. PT IS TO UNDERGO DIALYSIS THIS DAY. RENAL FOLLOWING. CM FOLLOWING.
--- NOTE | 2021-11-29 12:42 | NUR ---
1205: RT AT [facility] SUCTIONING PATIENT, PT BEGAN TO DESAT INTO MID 80S. 1225: RN NOTIFIED DR. GATES OF PT'S DESATURATIONS AND INABILITY TO RECOVER. PT REMAINS AT 80-82% SPO2. PT ALREADY ONM 100% FIO2 VIA ETT. TELEPHONE ORDER WITH READBACK FOR STAT CHEST XRAY. RN CALLED RT CONNIE AND DISCUSSED ANY FURTHER INTERVENTIONS. NO RECOMMENDATIONS AT THIS TIME DUE TO HIGH PEEP AND FIO2 OF 100. 1240: RADIOLOGY AT BEDSIDE.
--- NOTE | 2021-11-29 13:13 | NUR ---
1250: RN AGAIN CALLED DR. GATES REGARDING PT'S DESATURATIONS. SPO2 SUSTAININ IN LOW 70S. CXR COMPLETE-PER DR. GATES, NO SIGNS OF PNEUMOTHORAX AT THIS TIME. RN TO PLACE ORDER FOR HEPARIN GTT PER DR. GATES TO PREVENT FURTHER CLOTTING.
--- NOTE | 2021-11-29 15:22 | NUR ---
1500: RN CALLED DR. GATES FOR ORDER FOR PRESSORS DUE TO HYPOTENSION 70S/40S. NEW ORDERS FOR LEVOPHED, VASOPRESSIN, AND PHENYL.
--- NOTE | 2021-11-29 15:22 | NUR ---
1430: HD [employer]IC [employer] AT BEDSIDE FOR INITIATION OF DIALYSIS
--- NOTE | 2021-11-29 15:23 | NUR ---
1520: NEPHROLOIST AT BEDSIDE FOR EVAL, UPDATED PT'S SPOUSE AT BEDSIDE.
--- NOTE | 2021-11-29 20:00 | NUR ---
1530: NOTIFIED DR. ROSARIO OF MINIMAL TO ZERO URINE OUTPUT THIS SHIFT. HD IN PROGRESS AT THIS TIME.
--- NOTE | 2021-11-29 20:15 | NUR ---
1900: PT IS NOT CURRENTLY PROGRESSING ON PLAN OF CARE EVIDENCED BY CONTINUED DESATURATIONS REQUIRING INCREASED PEEP WITH VENTILATOR SUPPORT ON 100% FIO2; HYPOTENSION REQUIRING PRESSOR INITIATION; ANURIA AND INITIATION OF HEMODIALYSIS. PT'S SPOUSE PRESENT FROM APPROXIMATELY [phone] THIS SHIFT, SPOKE WITH DR. GATES; DR. ROSARIO; AND DR. REYNOLDS THIS SHIFT RECEIVING UPDATES FROM EACH OF THEM.
[2021-11-30] VITALS (34 sets, daily range): BP systolic 55–146; BP diastolic 29–105
[2021-11-30 05:34] LABS: HEMATOCRIT 22.3 % (42.0-52.0); HEMOGLOBIN 7.1 gm/dL (14.0-18.0); MCH 30.4 pg (26.0-34.0); MCV 95.1 fL (80.0-100.0); RBC 2.34 mil/uL (4.50-6.00); RDW 13.9 % (10.5-14.5); WBC 19.2 thou/uL (4.0-11.0)
[2021-11-30 05:36] LABS: CALCIUM 8.1 mg/dL (8.5-10.1); CREATININE 4.2 mg/dL (0.7-1.3)
[2021-11-30 05:42] LABS: POTASSIUM 6.1 mmol/L (3.5-5.1)
--- NOTE | 2021-11-30 07:39 | NUR ---
PATIENT CONTINUES TO DESAT TO 70-80s, PROVIDER AWARE. PATIENT REQUIRING 3 PRESSORS WITH FOR BP SUPPORT AT THIS TIME. PATIENT DOESN'T TOLERATE IN-LINE SUCTION, ORAL SUCTION IS BLOOD-TINGED AND HGB THIS AM 7.1. STARTED HEPARIN GTT PER ORDERS ON 11/29. PATIENT NOT FOLLOWING COMMANDS OR TRACKING WITH MINIMAL SEDATION. WILL CONTINUE TO MONITOR AND FOLLOW POC. HD STARTED 11/29.
--- NOTE | 2021-11-30 08:20 | NUR ---
ASSUMED CARE OF PT AT 0700 PT IS ON MAX VENTILATOR SUPPORT AND 100% FIO2 AND SATING 69% PTS BLOOD PRESSURES ARE SOFT DESPITE BEING ON 3 PRESSORS
[2021-11-30 15:56] LABS: ALBUMIN 1.8 g/dL (3.4-5.0); DIRECT BILIRUBIN 0.1 mg/dL (<0.1-0.2); TOTAL BILIRUBIN 0.4 mg/dL (0.2-1.0); TOTAL PROTEIN 5.3 g/dL (6.4-8.2)
== END 2021-11-30 09:44 | DRG 870 ==
LOC: ER 13:56 → 3W 16:30 → ICU 16:30 → EROBS 16:30 → 3W 17:55 → ICU 11-12 10:21
PROVIDERS: Internal Medicine Nephrology; Internal Medicine Pulmonary Disease; Nurse Practitioner; Nurse Practitioner Family; Pediatrics; Specialist; Student in an Organized Health Care Education/Training Program; ADMIT Hospitalist; ATTEND Hospitalist
PROC: 5A0935A Assistance with Respiratory Ventilation, Less than 24 Consecutive Hours, High Flow/Velocity Cannula (ICD-10-PCS; principal; 2021-11-11)
PROC: 5A0935A Assistance with Respiratory Ventilation, Less than 24 Consecutive Hours, High Flow/Velocity Cannula (ICD-10-PCS; 2021-11-12)
PROC: 5A0935A Assistance with Respiratory Ventilation, Less than 24 Consecutive Hours, High Flow/Velocity Cannula (ICD-10-PCS; 2021-11-13)
PROC: 5A09357 Assistance with Respiratory Ventilation, Less than 24 Consecutive Hours, Continuous Positive Airway Pressure (ICD-10-PCS; 2021-11-13)
PROC: 5A0935A Assistance with Respiratory Ventilation, Less than 24 Consecutive Hours, High Flow/Velocity Cannula (ICD-10-PCS; 2021-11-14)
PROC: 5A09357 Assistance with Respiratory Ventilation, Less than 24 Consecutive Hours, Continuous Positive Airway Pressure (ICD-10-PCS; 2021-11-14)
PROC: 5A09357 Assistance with Respiratory Ventilation, Less than 24 Consecutive Hours, Continuous Positive Airway Pressure (ICD-10-PCS; 2021-11-15)
PROC: 5A0935A Assistance with Respiratory Ventilation, Less than 24 Consecutive Hours, High Flow/Velocity Cannula (ICD-10-PCS; 2021-11-15)
PROC: 5A09357 Assistance with Respiratory Ventilation, Less than 24 Consecutive Hours, Continuous Positive Airway Pressure (ICD-10-PCS; 2021-11-16)
PROC: 5A0935A Assistance with Respiratory Ventilation, Less than 24 Consecutive Hours, High Flow/Velocity Cannula (ICD-10-PCS; 2021-11-16)
PROC: 5A0935A Assistance with Respiratory Ventilation, Less than 24 Consecutive Hours, High Flow/Velocity Cannula (ICD-10-PCS; 2021-11-17)
PROC: 5A09357 Assistance with Respiratory Ventilation, Less than 24 Consecutive Hours, Continuous Positive Airway Pressure (ICD-10-PCS; 2021-11-17)
PROC: 5A09357 Assistance with Respiratory Ventilation, Less than 24 Consecutive Hours, Continuous Positive Airway Pressure (ICD-10-PCS; 2021-11-18)
PROC: 5A0935A Assistance with Respiratory Ventilation, Less than 24 Consecutive Hours, High Flow/Velocity Cannula (ICD-10-PCS; 2021-11-18)
PROC: 0BH17EZ Insertion of Endotracheal Airway into Trachea, Via Natural or Artificial Opening (ICD-10-PCS; 2021-11-19)
PROC: 5A09357 Assistance with Respiratory Ventilation, Less than 24 Consecutive Hours, Continuous Positive Airway Pressure (ICD-10-PCS; 2021-11-19)
PROC: 5A1955Z Respiratory Ventilation, Greater than 96 Consecutive Hours (ICD-10-PCS; 2021-11-19)
PROC: 5A0935A Assistance with Respiratory Ventilation, Less than 24 Consecutive Hours, High Flow/Velocity Cannula (ICD-10-PCS; 2021-11-19)
PROC: XW033E5 Introduction of Remdesivir Anti-infective into Peripheral Vein, Percutaneous Approach, New Technology Group 5 (ICD-10-PCS; 2021-11-20)
PROC: B548ZZA Ultrasonography of Superior Vena Cava, Guidance (ICD-10-PCS; 2021-11-29)
PROC: 5A1D70Z Performance of Urinary Filtration, Intermittent, Less than 6 Hours Per Day (ICD-10-PCS; 2021-11-29)
PROC: 02HV33Z Insertion of Infusion Device into Superior Vena Cava, Percutaneous Approach (ICD-10-PCS; 2021-11-29)
PROC: 5A12012 Performance of Cardiac Output, Single, Manual (ICD-10-PCS; 2021-11-30)
DX: A41.89 Other specified sepsis (principal); U07.1 COVID-19; I26.99 Other pulmonary embolism without acute cor pulmonale; J80 Acute respiratory distress syndrome; J12.82 Pneumonia due to coronavirus disease 2019; G92.8 Other toxic encephalopathy; E43 Unspecified severe protein-calorie malnutrition; J93.9 Pneumothorax, unspecified; I82.431 Acute embolism and thrombosis of right popliteal vein; I82.451 Acute embolism and thrombosis of right peroneal vein; I10 Essential (primary) hypertension; E78.5 Hyperlipidemia, unspecified; E66.9 Obesity, unspecified; R73.9 Hyperglycemia, unspecified; R65.20 Severe sepsis without septic shock; J98.2 Interstitial emphysema; D64.9 Anemia, unspecified; X58.XXXA Exposure to other specified factors, initial encounter; T70.29XA Other effects of high altitude, initial encounter; E87.5 Hyperkalemia; I48.91 Unspecified atrial fibrillation; I95.9 Hypotension, unspecified; I46.9 Cardiac arrest, cause unspecified; Z68.31 Body mass index [BMI] 31.0-31.9, adult; Z87.891 Personal history of nicotine dependence
CPT/HCPCS: 10078; 10203; 10879; 27000; 32100